=== PATIENT | male | born 1980 | race Caucasian/White ===

== ENCOUNTER 2018-07-26 09:19 | Emergency (ER) | payer OTHER ==
[~2018-07-26] VITALS: Ht 188 cm; Wt 90.7 kg
[2018-07-26 09:19] VITALS: Ht 188 cm; Wt 90.7 kg
[2018-07-26 11:41] VITALS: BP 110/75
== END 2018-07-26 11:41 | disposition home or self-care (01) ==
LOC: ED 09:19
DX: S29.012A Strain of muscle and tendon of back wall of thorax, initial encounter (principal); M54.5 Low back pain; G89.29 Other chronic pain; X58.XXXA Exposure to other specified factors, initial encounter; Y93.89 Activity, other specified; Y92.89 Other specified places as the place of occurrence of the external cause; Y99.8 Other external cause status
CPT/HCPCS: J3010

== ENCOUNTER 2019-02-14 03:20 | Emergency (ER) | payer SELFPAY ==
[~2019-02-14] VITALS: Ht 190.5 cm; Wt 93.7 kg
[2019-02-14 03:27] VITALS: Ht 190.5 cm; Wt 93.7 kg
[2019-02-14 04:14] VITALS: BP 126/61
== END 2019-02-14 04:14 | disposition home or self-care (01) ==
LOC: ED 03:20
DX: G47.09 Other insomnia (principal); K21.9 Gastro-esophageal reflux disease without esophagitis; F11.90 Opioid use, unspecified, uncomplicated; G89.29 Other chronic pain; Z90.49 Acquired absence of other specified parts of digestive tract

== ENCOUNTER 2019-02-14 07:25 | Emergency (ER) | payer SELFPAY ==
[~2019-02-14] VITALS: Ht 190.5 cm; Wt 93.4 kg
[2019-02-14 07:40] VITALS: Ht 190.5 cm; Wt 93.4 kg
[2019-02-14 08:53] VITALS: BP 133/89
== END 2019-02-14 08:53 | disposition home or self-care (01) ==
LOC: ED 07:25
DX: G47.09 Other insomnia (principal); F11.23 Opioid dependence with withdrawal; K21.9 Gastro-esophageal reflux disease without esophagitis